=== PATIENT | male | born 1960 | race African-American/Black ===

== ENCOUNTER 2022-11-20 18:14 | Emergency (ER) | payer OTHER ==
[~2022-11-20] VITALS: Ht 182.9 cm; Wt 98.4 kg
[~2022-11-20 18:14] MED LIST: AMLO1TAB22; BECL80AE9; CEFU500T17; MELO-335
[2022-11-20 19:12] LABS: Urine Bacteria NONE SEEN /hpf (None Seen); Urine Blood Negative /uL (Negative); Urine Mucus FEW (None Seen); Urine Specific Gravity 1.015 (1.001-1.035); Urine WBC 1 /hpf (0 - 3)
[2022-11-20 19:29] LABS: Basophils # (auto) 0.1 10 ^3/uL (0-0.2); Basophils % (auto) 1.1 % (0.0-2.0); Eosinophils # (auto) 0.5 10 ^3/uL (0-0.8); Eosinophils % (auto) 5.5 % (0.0-7.0); Hematocrit 40.1 % (41.0-53.0); Hemoglobin 13.5 g/dL (13.5-17.5); Lymphocytes # (auto) 2.2 10 ^3/uL (0.4-5.4); Lymphocytes % (auto) 24.3 % (10.0-50.0); Mean Corpuscular Hemoglobin 28.5 pg (28.0-32.0); Mean Corpuscular Hgb Conc. 33.5 g/dL (32.0-36.0); Mean Corpuscular Volume 84.8 fL (80.0-100.0); Monocytes # (auto) 0.8 10 ^3/uL (0-1.3); Monocytes % (auto) 9.2 % (0.0-12.0); Neutrophils # (auto) 5.3 10 ^3/uL (1.6-8.6); Neutrophils % (auto) 59.9 % (37.0-80.0); Nucleated Red Blood Cells % 0.1 %; Red Blood Cells 4.73 10^6/uL (4.5-5.90); Red Cell Distribution Width 15.9 % (11.8-14.3); White Blood Cell 8.9 10^3/uL (4.4-10.8)
[2022-11-20 19:49] LABS: Albumin 3.9 g/dL (3.4-5.0); Calcium 9.2 mg/dL (8.5-10.1)
[2022-11-20 19:51] LABS: BUN/Creatinine Ratio 9.9 (10.0-20.0)
[2022-11-20 19:54] LABS: Bilirubin, Total 0.7 mg/dL (0.2-1.0); Total Protein 6.7 g/dL (6.4-8.2)
[2022-11-21] MEDS ORDERED: KETOROLAC TROMETH 30 MG/ML 1ML VIAL IM ONE
[2022-11-21] MEDS ORDERED: HYOS0.1250 PO (00:01)
[2022-11-21] MEDS ORDERED: OMEP-448 PO (00:01)
[2022-11-21 00:31] VITALS: BP 103/71; PULSE 78; RESP 18; TEMP 97.5
[2022-11-21 00:34] VITALS: O2SAT 97
== END 2022-11-21 01:10 | disposition home or self-care (01) ==
LOC: ER 18:14
DX: K52.9 Noninfective gastroenteritis and colitis, unspecified (principal); K29.70 Gastritis, unspecified, without bleeding; Z98.890 Other specified postprocedural states; Z79.899 Other long term (current) drug therapy
CPT/HCPCS: 36415; 74176; 80053; 81001; 83605; 83690; 84484; 85025; 96372; 99284; J1885

== ENCOUNTER 2023-08-17 17:45 | Emergency (ER) | payer OTHER ==
[~2023-08-17] VITALS: Ht 182.9 cm; Wt 104.4 kg
[~2023-08-17 17:45] MED LIST changes: +ALBU108A5 IN; -AMLO1TAB22; +ASPI-543 PO; +ATOR40TA52 PO; -BECL80AE9; -CEFU500T17; +DOXA1TAB42 PO; +DULO60CA41 PO; +EZET10TA22 PO; +GABA800T97 PO; +IBUP-1454 PO; +LAMO100T44 PO; -MELO-335; +METO25TA5 PO; +NITR0.4S29 SL; +RANO500T3 PO; +SUMA25TA2 PO
[2023-08-17 17:58] VITALS: BP 125/93; RESP 16; O2SAT 98
[2023-08-17 18:05] VITALS: PULSE 93
[2023-08-17 18:41] LABS: Basophils # (auto) 0.1 10 ^3/uL (0-0.2); Basophils % (auto) 1.3 % (0.0-2.0); Eosinophils # (auto) 0.6 10 ^3/uL (0-0.8); Eosinophils % (auto) 6.9 % (0.0-7.0); Hematocrit 38.5 % (41.0-53.0); Hemoglobin 13.1 g/dL (13.5-17.5); Lymphocytes # (auto) 2.4 10 ^3/uL (0.4-5.4); Lymphocytes % (auto) 25.2 % (10.0-50.0); Mean Corpuscular Volume 82.2 fL (80.0-100.0); Monocytes # (auto) 0.8 10 ^3/uL (0-1.3); Monocytes % (auto) 8.5 % (0.0-12.0); Neutrophils # (auto) 5.5 10 ^3/uL (1.6-8.6); Neutrophils % (auto) 58.1 % (37.0-80.0); Red Blood Cells 4.69 10^6/uL (4.5-5.90); White Blood Cell 9.4 10^3/uL (4.4-10.8)
[2023-08-17 18:56] LABS: Alanine Aminotransferase 28 U/L (7-40); Albumin 4.5 g/dL (3.2-4.8); Alkaline Phosphatase 112 U/L (46-116); Anion Gap 6 (5-15); Aspartate Aminotransferase 21 U/L (13-40); BUN/Creatinine Ratio 6.4 (10.0-20.0); Bilirubin, Total 0.6 mg/dL (0.2-1.0); Blood Urea Nitrogen 9 mg/dL (9-23); Calcium 10.1 mg/dL (8.7-10.4); Carbon Dioxide 26 mmol/L (20-30); Chloride 111 mmol/L (98-107); Glucose 95 mg/dL (74-106); Potassium 4.3 mmol/L (3.5-5.1); Sodium 143 mmol/L (136-145)
[2023-08-17 18:57] LABS: Total Protein 7.2 g/dL (5.7-8.2)
== END 2023-08-17 20:54 | disposition home or self-care (01) ==
LOC: ER 17:45
DX: R06.00 Dyspnea, unspecified (principal); I25.10 Atherosclerotic heart disease of native coronary artery without angina pectoris; I10 Essential (primary) hypertension; Z95.1 Presence of aortocoronary bypass graft; Z79.82 Long term (current) use of aspirin; Z79.1 Long term (current) use of non-steroidal anti-inflammatories (NSAID); Z79.899 Other long term (current) drug therapy
CPT/HCPCS: 36415; 71046; 80053; 84484; 85025; 93005

== ENCOUNTER 2023-10-19 17:40 | Inpatient (IN) | payer OTHER ==
[~2023-10-19] VITALS: Ht 182.9 cm; Wt 110.0 kg
[2023-10-19 18:06] LABS: Basophils # (auto) 0.1 10 ^3/uL (0-0.2); Basophils % (auto) 1.2 % (0.0-2.0); Eosinophils # (auto) 0.8 10 ^3/uL (0-0.8); Eosinophils % (auto) 9.8 % (0.0-7.0); Hematocrit 36.9 % (41.0-53.0); Hemoglobin 12.1 g/dL (13.5-17.5); Lymphocytes # (auto) 2.2 10 ^3/uL (0.4-5.4); Mean Corpuscular Hemoglobin 27.3 pg (28.0-32.0); Mean Corpuscular Hgb Conc. 32.9 g/dL (32.0-36.0); Mean Corpuscular Volume 82.9 fL (80.0-100.0); Monocytes # (auto) 0.7 10 ^3/uL (0-1.3); Monocytes % (auto) 8.7 % (0.0-12.0); Neutrophils # (auto) 4.6 10 ^3/uL (1.6-8.6); Neutrophils % (auto) 54.3 % (37.0-80.0); Nucleated Red Blood Cells % 0.2 %; Red Blood Cells 4.45 10^6/uL (4.5-5.90); White Blood Cell 8.4 10^3/uL (4.4-10.8)
[2023-10-19 18:14] VITALS: PULSE 75; RESP 16; O2SAT 96
[2023-10-19 18:21] LABS: Alanine Aminotransferase 22 U/L (7-40); Albumin 3.7 g/dL (3.2-4.8); Alkaline Phosphatase 101 U/L (46-116); Anion Gap 6 (5-15); Aspartate Aminotransferase 11 U/L (13-40); BUN/Creatinine Ratio 9.6 (10.0-20.0); Bilirubin, Total 0.5 mg/dL (0.2-1.0); Blood Urea Nitrogen 11 mg/dL (9-23); Calcium 9.4 mg/dL (8.7-10.4); Carbon Dioxide 24 mmol/L (20-30); Chloride 113 mmol/L (98-107); Glucose 103 mg/dL (74-106); Magnesium 1.8 mg/dL (1.6-2.6); Potassium 3.9 mmol/L (3.5-5.1); Sodium 143 mmol/L (136-145); Total Protein 6.3 g/dL (5.7-8.2)
[2023-10-19 18:25] LABS: Partial Thromboplastin Time 25.6 SEC (24.5-34.5); Prothrombin Time 10.6 sec (9.3-11.8)
[2023-10-19 19:30] VITALS: PULSE 73; RESP 15; O2SAT 97
[2023-10-19] MEDS: ASPirin-EC 325mg tab PO ONE (21:50)
[2023-10-19] MEDS: ENOXAPARIN SOD 100 MG/1 ML SYRINGE SC ONE (21:51)
[2023-10-19] MEDS ORDERED: ACETAMINOPHEN 325 MG TAB PO PRN (23:00)
[2023-10-19] MEDS ORDERED: HYDROcodone-ACET 5/325MG TAB PO PRN (23:00)
[2023-10-19] MEDS ORDERED: ONDANSETRON HCL 4 MG/2 ML VIAL IV PRN (23:00)
[2023-10-19] MEDS ORDERED: NITROGLYCERIN 0.4 MG SL TAB SL PRN (23:00)
[2023-10-20] VITALS (7 sets, daily range): BP systolic 123–135; BP diastolic 69–86; PULSE 68–78; RESP 16–20; TEMP 36.6; O2SAT 97–100
[2023-10-20 05:07] LABS: Triglycerides 83 mg/dL (< 150)
[2023-10-20 05:08] LABS: LDL Cholesterol 85 mg/dL (< 100)
[2023-10-20 05:09] LABS: Cholesterol 135 mg/dL (< 200); HDL Cholesterol 34 mg/dL (40-59)
[2023-10-20] MEDS: MORPHINE SULFATE INJ 2 MG/ml SYRG IV PRN (05:53)
[2023-10-20] MEDS: PANTOPRAZOLE 40 MG/10 ML VIAL INJ IV SCH (09:22)
[2023-10-20] MEDS: ENOXAPARIN SOD 40 MG/0.4 ML SYRINGE SC SCH (09:23)
[2023-10-20] MEDS: ASPirin 81 mg TAB PO SCH (09:23)
[2023-10-20] MEDS ORDERED: ATORVASTATIN 20 MG TAB PO SCH (22:00)
== END 2023-10-20 17:31 | disposition home or self-care (01) | DRG 206 ==
LOC: ER 17:40 → EDBD 17:40 → TELE 22:58 → TELE-WESTW 23:02 → OBSVTOIN 10-20 09:02
PROVIDERS: ADMIT Nurse Practitioner Family; ATTEND Nurse Practitioner Family
DX: M94.0 Chondrocostal junction syndrome [Tietze] (principal); J45.909 Unspecified asthma, uncomplicated; I25.10 Atherosclerotic heart disease of native coronary artery without angina pectoris; I25.2 Old myocardial infarction; I10 Essential (primary) hypertension; Z87.891 Personal history of nicotine dependence; Z95.1 Presence of aortocoronary bypass graft
CPT/HCPCS: 36415; 71045; 80053; 80061; 83735; 83880; 84484; 85025; 85610; 85730; 93005; 93306; 96372; 99291; C9113; G0378

== ENCOUNTER → 2024-08-31 | Day surgery (SDC) | payer OTHER ==
[~2024-08-31] VITALS: Ht 182.9 cm; Wt 106.1 kg
[~2024-08-31] MED LIST changes: +CHOL1TAB28 PO; +CYCL-837 PO; +DOCU-94 PO; +GABA-2171 PO; -GABA800T97 PO; +LIDOCAINE W/ EPINEPHRINE 1% 20ML VIAL ONE; -METO25TA5 PO; +TRANEXAMIC ACID 0 ML ONE; +ceFAZolin 2 GM/D5W50ml 50 ML IV ONE
== END | disposition home or self-care (01) ==
LOC: SUR 06:05
PROVIDERS: ATTEND Orthopaedic Surgery
DX: M48.062 Spinal stenosis, lumbar region with neurogenic claudication (principal); Z53.8 Procedure and treatment not carried out for other reasons; F41.9 Anxiety disorder, unspecified; F31.9 Bipolar disorder, unspecified; I10 Essential (primary) hypertension; G89.29 Other chronic pain; I25.10 Atherosclerotic heart disease of native coronary artery without angina pectoris; I25.2 Old myocardial infarction; J44.89 Other specified chronic obstructive pulmonary disease; M19.90 Unspecified osteoarthritis, unspecified site; E78.00 Pure hypercholesterolemia, unspecified; Z88.1 Allergy status to other antibiotic agents; Z82.49 Family history of ischemic heart disease and other diseases of the circulatory system; Z79.82 Long term (current) use of aspirin; Z87.891 Personal history of nicotine dependence
CPT/HCPCS: 86850; 86900; 86901; J0690; J1956

== ENCOUNTER 2025-04-04 09:44 | Day surgery (SDC) | payer OTHER ==
[~2025-04-04] VITALS: Ht 182.9 cm; Wt 100.7 kg
[~2025-04-04 09:44] MED LIST changes: -LIDOCAINE W/ EPINEPHRINE 1% 20ML VIAL ONE; +METO25TA5 PO; -RANO500T3 PO; -TRANEXAMIC ACID 0 ML ONE; -ceFAZolin 2 GM/D5W50ml 50 ML IV ONE
[2025-04-04] MEDS ORDERED: IODIXANOL 320MG/ML 100ML BTL IV ONE ×3 (10:20→12:17)
[2025-04-04] MEDS ORDERED: ANGIOMAX 250 MG VIAL IV ONE (10:31)
[2025-04-04] MEDS ORDERED: SODIUM CHL 0.9% 0 ML ONE (10:31)
[2025-04-04] MEDS ORDERED: MIDAZOLAM HCL 2MG/2ML 2ml VIAL (1mg/ml) ONE (10:31)
[2025-04-04] MEDS ORDERED: fentaNYL CITRATE 100 MCG/2 ML VL ONE (10:31)
[2025-04-04] MEDS ORDERED: LIDOCAINE 2%HCL (LOCAL ANESTH.) INJ 20ML MDV ONE (10:31)
[2025-04-04 12:36] VITALS: BP 126/81; PULSE 66; RESP 13; O2SAT 98
[2025-04-04 12:45] VITALS: BP 126/81; PULSE 64; RESP 13; O2SAT 97
[2025-04-04 13:00] VITALS: BP 108/77; PULSE 63; RESP 11; O2SAT 93
--- NOTE | 2025-04-04 13:00 | DVHOP2 ---
Operative Report Operative Report CARDIAC SURVEYOR GEODETIC PROCEDURE REPORT [place], [place] Date of Service: 04/04/25 Tie Loader: Sonia Lion MD PROCEDURES PERFORMED: Coronary angiogram, left heart catheterization, conscious sedation administration and supervision, less than 15 minutes; fluoroscopy use and interpretation. vein graft angiography, uS guided vascular access saved to pacs system PREOPERATIVE DIAGNOSES: s/p cabg , preop eval POSTOP DIAGNOSIS: cad DESCRIPTION OF PROCEDURE: The patient or appropriate family signed informed consent understanding the risks, benefits and alternatives of the procedure, they wished to proceed. [place] [facility] [place] [facility] [place] The patient was prepped in a sterile fashion. Sedation was used per cardiac cath protocol. I administered 8 mL of 2% lidocaine to the right groin. WIth US guidance i assessed the patent R H[employer]ENER with moderate plaque. I accessed it t. With an antegrade front wall puncture. I cannulated the right H[employer]ENER and placed a 6-Setswana Glidesheath Next, - 6French TJR4, JL4, and MPL were used for coronary angiogram . At the completion of procedure, all guides and wires were removed, and there were no immediate complications. 6f angioseal used for closure for appropriate arteriotomy site. FINDINGS: RCA: not engaged or accessible in 2023 or 2024 caths 100% lesion in past. LEFT MAIN: Moderate size left main, it bifurcates into LAD and circumflex. 50% distal stenois CIRCUMFLEX: Moderate caliber vessel coming off the left main . 80% prox stenosis . LAD: LAD is a moderate caliber vessel coming of the left main. mild to moderate non critical cad SVG to CX/OM is patent, small vessel that bifurcates distally JOSHI to LAD non functional noted in 2023 CONCLUSIONS: 1. cad stable from 2023 PLAN: Aggressive risk factor modification and medical management for the patient. pt was deemend not needed for [place]asc by [facility] [place] pt is preop for back surgery, intermediate risk SONIA LION MD Apr 04, 2025 13:00
[2025-04-04 13:15] VITALS: BP 121/85; PULSE 64; RESP 14; O2SAT 97
[2025-04-04 13:30] VITALS: BP 113/86; PULSE 66; RESP 13; O2SAT 96
[2025-04-04 14:00] VITALS: BP 131/90; PULSE 67; RESP 15; O2SAT 97
== END 2025-04-04 14:36 | disposition home or self-care (01) ==
LOC: CATH 09:44
PROVIDERS: ATTEND Internal Medicine
DX: I25.810 Atherosclerosis of coronary artery bypass graft(s) without angina pectoris (principal); I10 Essential (primary) hypertension; I25.2 Old myocardial infarction; E78.5 Hyperlipidemia, unspecified; Z79.82 Long term (current) use of aspirin; Z79.899 Other long term (current) drug therapy; Z87.09 Personal history of other diseases of the respiratory system; Z95.1 Presence of aortocoronary bypass graft; Z87.891 Personal history of nicotine dependence; Z88.8 Allergy status to other drugs, medicaments and biological substances
CPT/HCPCS: 93455; C1760; C1894; J1644; J2250; J3010; Q9967; 93459; 99152; 99153